=== PATIENT | female | born 2005 | race Hispanic/Latino ===

== ENCOUNTER 2025-03-26 05:45 | Emergency (ER) | payer SELFPAY ==
[~2025-03-26] VITALS: Ht 167.6 cm; Wt 73.3 kg
[2025-03-26 05:51] VITALS: BP 134/77; TEMP 97; O2SAT 97
[2025-03-26] MEDS ORDERED: GNP28TAB2 PO (05:53)
== END 2025-03-26 06:10 | disposition left against medical advice (07) ==
LOC: M ED 05:45
DX: Z53.21 Procedure and treatment not carried out due to patient leaving prior to being seen by health care provider (principal)

== ENCOUNTER 2025-03-26 06:11 | Outpatient (CLI) | payer SELFPAY ==
[~2025-03-26] VITALS: Ht 167.6 cm; Wt 73.2 kg
[~2025-03-26 06:11] MED LIST: GNP28TAB2 PO
[2025-03-26 06:34] VITALS: BP 114/69
[2025-03-26 06:52] LABS: KETONE, URINE AUTO RFX 1+ mg/dL (NEGATIVE); LEUKOCYTE ESTERASE UR AUTO RFX NEGATIVE (NEGATIVE); MUCUS, URINE RFX SMALL (NEGATIVE); NITRITE, URINE AUTO RFX NEGATIVE (NEGATIVE); RBC, URINE AUTO RFX 6 /HPF (0-3); SQUAM EPITHELIAL CELL UR AURFX 5 /HPF (0-6); WBC, URINE AUTO RFX 2 /HPF (0-3)
[2025-03-26] MEDS: LR 1,000 ML IV ONE (07:04)
[2025-03-26 07:15] LABS: BASO % 0.2 % (0.0-1.0); EOS # 0.1 10^3/uL (0.0-0.5); EOS % 0.9 % (0.0-3.0); HEMATOCRIT 38.6 % (36.0-47.0); LYMPH # 1.5 10^3/uL (1.5-5.0); LYMPH % 17.1 % (24.0-44.0); MEAN CORPUSCULAR HEMOGLOBIN 29.1 pg (27.0-33.0); MEAN CORPUSCULAR HGB CONC 33.7 g/dl (32.0-36.5); MEAN CORPUSCULAR VOLUME 86.4 fl (80.0-96.0); MONO # 0.8 10^3/uL (0.0-0.8); MONO % 9.2 % (2.0-8.0); NEUTROPHILS # 6.4 10^3/uL (1.5-8.5); NEUTROPHILS % 71.6 % (36.0-66.0); PLATELET COUNT, AUTOMATED 259 10^3/uL (150-450); RED BLOOD COUNT 4.47 10^6/uL (4.00-5.40)
[2025-03-26 07:44] VITALS: BP 123/64
[2025-03-26 07:47] LABS: ALBUMIN 3.1 G/DL (3.2-5.2); ALKALINE PHOSPHATASE 82 U/L (35-104); ALT/SGPT 17 U/L (7.0-40); AST/SGOT 27 U/L (<34); BILIRUBIN,TOTAL 0.3 MG/DL (0.3-1.2); BLOOD UREA NITROGEN 8 MG/DL (9-23); CALCIUM LEVEL 10.7 MG/DL (8.5-10.1); CARBON DIOXIDE LEVEL 21 MMOL/L (20-31); CHLORIDE LEVEL 105 MMOL/L (98-107); CREATININE FOR GFR 0.51 MG/DL (0.55-1.30); GLOMERULAR FILTRATION RATE > 90.0 (>60); GLUCOSE, FASTING 79 MG/DL (60-100); POTASSIUM SERUM 3.8 MMOL/L (3.5-5.1); SODIUM LEVEL 136 MMOL/L (136-145); TOTAL PROTEIN 6.5 G/DL (5.7-8.2)
[2025-03-26] MEDS: LOPERAMIDE 2 MG CAPLET PO ONE (08:59)
[2025-03-26 10:18] VITALS: BP 101/54
== END 2025-03-26 10:35 | disposition home or self-care (01) ==
LOC: M LDO 06:11
PROVIDERS: ATTEND Obstetrics & Gynecology
DX: O26.892 Other specified pregnancy related conditions, second trimester (principal); R10.9 Unspecified abdominal pain; R19.7 Diarrhea, unspecified; Z3A.22 22 weeks gestation of pregnancy
CPT/HCPCS: 80053; 81001; 85025; 87507; G0463

== ENCOUNTER 2025-07-16 15:17 | Emergency (ER) | payer OTHER, SELFPAY ==
[~2025-07-16] VITALS: Ht 167.6 cm; Wt 78.8 kg
[2025-07-16] MEDS ORDERED: ACET-683 PO (15:25)
[2025-07-16 16:15] LABS: KETONE, URINE AUTO RFX NEGATIVE (NEGATIVE); LEUKOCYTE ESTERASE UR AUTO RFX NEGATIVE (NEGATIVE); MUCUS, URINE RFX SMALL (NEGATIVE); NITRITE, URINE AUTO RFX NEGATIVE (NEGATIVE); RBC, URINE AUTO RFX 3 /HPF (0-3); SQUAM EPITHELIAL CELL UR AURFX 0 /HPF (0-6); WBC, URINE AUTO RFX 1 /HPF (0-3)
[2025-07-16] MEDS: ACETAMINOPHEN 500 MG TAB PO ONE (16:18)
[2025-07-16 16:34] LABS: BASO # 0.1 10^3/uL (0.0-0.2); BASO % 0.4 % (0.0-1.0); EOS # 0.1 10^3/uL (0.0-0.5); EOS % 0.7 % (0.0-3.0); LYMPH # 1.3 10^3/uL (1.5-5.0); LYMPH % 8.9 % (24.0-44.0); MONO # 0.8 10^3/uL (0.0-0.8); MONO % 5.4 % (2.0-8.0); NEUTROPHILS # 11.8 10^3/uL (1.5-8.5); NEUTROPHILS % 84.2 % (36.0-66.0); PLATELET COUNT, AUTOMATED 302 10^3/uL (150-450)
[2025-07-16 16:44] LABS: ERYTHROCYTE SEDIMENTATION RATE 68 mm/hr (0-20)
[2025-07-16] MEDS: NS (Normal Saline) 0.9% 1,000 ML IV ONE (16:47)
[2025-07-16 16:56] LABS: ALT/SGPT 40 U/L (7.0-40); AST/SGOT 23 U/L (<34); C REACTIVE PROTEIN QUANTITATIV 6.32 MG/DL (<1.0); CALCIUM LEVEL 10.8 MG/DL (8.5-10.1); CARBON DIOXIDE LEVEL 26 MMOL/L (20-31); CHLORIDE LEVEL 105 MMOL/L (98-107); CREATININE FOR GFR 0.89 MG/DL (0.55-1.30); GLOMERULAR FILTRATION RATE > 90.0 (>60); POTASSIUM SERUM 4.2 MMOL/L (3.5-5.1); SODIUM LEVEL 141 MMOL/L (136-145)
[2025-07-16] MEDS: IBUPROFEN 600 MG TAB PO ONE (18:02)
[2025-07-16] MEDS ORDERED: ISOVUE-370 76% 100 ML VIAL As Ordered ONE (18:05)
[2025-07-16] MEDS ORDERED: LIDOCAINE 1% SDV 5 ML VIAL DILUENT ONE (20:45)
[2025-07-16] MEDS ORDERED: METR-265 PO (20:49)
[2025-07-16] MEDS ORDERED: DOXY-441 PO (20:49)
[2025-07-16] MEDS: MINI IV ONE (20:59)
[2025-07-16] MEDS: DEXTROSE 5% IV ONE (20:59)
[2025-07-16] MEDS: DOXYCYCLINE HYCLATE 100 MG TABLET PO ONE (20:59)
[2025-07-16] MEDS: CEFTRIAXONE SOD IV ONE (20:59)
[2025-07-16] MEDS: ADV IV ONE (20:59)
[2025-07-16 21:27] VITALS: BP 107/61; TEMP 96.7; O2SAT 98
== END 2025-07-16 21:29 | disposition home or self-care (01) ==
LOC: M ED 15:17
DX: R50.9 Fever, unspecified (principal); R16.2 Hepatomegaly with splenomegaly, not elsewhere classified; N20.0 Calculus of kidney; Z79.899 Other long term (current) drug therapy
CPT/HCPCS: 36415; 74177; 76856; 80053; 81001; 83605; 84145; 85025; 85652; 86140; 87486; 87581; 87633; 87798; 93005; 93976; 96361; 96365; 99284; J0696; Q9967

== ENCOUNTER 2025-07-26 22:07 | Inpatient (IN) | payer OTHER ==
[~2025-07-26] VITALS: Ht 167.6 cm; Wt 77.2 kg
[~2025-07-26 22:07] MED LIST changes: +ACET-683 PO; +DOXY-441 PO; +METR-265 PO
[2025-07-27] MEDS: IBUPROFEN 600 MG TAB PO ONE (01:52)
[2025-07-27 03:14] LABS: KETONE, URINE AUTO RFX 1+ mg/dL (NEGATIVE); LEUKOCYTE ESTERASE UR AUTO RFX 1+ (NEGATIVE); NITRITE, URINE AUTO RFX NEGATIVE (NEGATIVE); RBC, URINE AUTO RFX 22 /HPF (0-3); SQUAM EPITHELIAL CELL UR AURFX 0 /HPF (0-6); WBC, URINE AUTO RFX 6 /HPF (0-3)
[2025-07-27 03:17] LABS: BASO # 0.1 10^3/uL (0.0-0.2); BASO % 0.5 % (0.0-1.0); EOS # 0.3 10^3/uL (0.0-0.5); EOS % 2.1 % (0.0-3.0); LYMPH # 1.6 10^3/uL (1.5-5.0); LYMPH % 11.7 % (24.0-44.0); MONO # 0.8 10^3/uL (0.0-0.8); MONO % 5.9 % (2.0-8.0); NEUTROPHILS # 10.6 10^3/uL (1.5-8.5); NEUTROPHILS % 79.5 % (36.0-66.0); PLATELET COUNT, AUTOMATED 430 10^3/uL (150-450)
[2025-07-27] MEDS ORDERED: ISOVUE-370 76% 100 ML VIAL As Ordered ONE (03:34)
[2025-07-27 03:46] LABS: ALT/SGPT 36 U/L (7.0-40); AST/SGOT 24 U/L (<34); CALCIUM LEVEL 10.4 MG/DL (8.5-10.1); CARBON DIOXIDE LEVEL 24 MMOL/L (20-31); CHLORIDE LEVEL 103 MMOL/L (98-107); CREATININE FOR GFR 0.88 MG/DL (0.55-1.30); GLOMERULAR FILTRATION RATE > 90.0 (>60); POTASSIUM SERUM 4.1 MMOL/L (3.5-5.1); SODIUM LEVEL 137 MMOL/L (136-145)
[2025-07-27] MEDS: [UNRECOGNIZED DRUG - OTHER] IV ONE (04:04)
[2025-07-27] MEDS: NS 0.9% IV ONE (04:04)
[2025-07-27] MEDS: ACETAMINOPHEN *IV* 1,000 MG in IV 1 EA IV ONE (04:05)
[2025-07-27 06:30] LABS: HCG, SERUM QUANTITATIVE < 2.6 MIU/ML (<4.2)
[2025-07-27 07:51] LABS: C REACTIVE PROTEIN QUANTITATIV 3.17 MG/DL (<1.0)
[2025-07-27 08:02] LABS: ERYTHROCYTE SEDIMENTATION RATE 52 mm/hr (0-20)
[2025-07-27] MEDS ORDERED: DOXY-440 PO (11:14)
[2025-07-27] MEDS ORDERED: METR-265 PO (11:15)
[2025-07-27] MEDS ORDERED: HOME MED LIST COMPLETE! XX SCH (11:20)
[2025-07-27] MEDS: D5W/0.45% SODIUM CHLORIDE 1,000 ML IV ONE (11:25)
[2025-07-27 12:00] VITALS: BP 104/63; TEMP 98.8; O2SAT 99
[2025-07-27 13:45] VITALS: TEMP 98.7
[2025-07-27] MEDS ORDERED: IBUPROFEN 800 MG TAB PO PRN (13:55)
[2025-07-27 16:00] VITALS: BP 111/63; TEMP 99.7; O2SAT 98
[2025-07-27 16:40] VITALS: TEMP 100
[2025-07-27] MEDS: ACETAMINOPHEN 500 MG TAB PO PRN (16:47)
[2025-07-27 18:00] VITALS: TEMP 98.9
[2025-07-27] MEDS: FLUCONAZOLE 100 MG TAB PO ONE (18:23)
[2025-07-27 20:00] VITALS: BP 108/61; TEMP 98.4; O2SAT 98
[2025-07-28] VITALS: BP 102/55; TEMP 97.2; O2SAT 98
[2025-07-28 04:00] VITALS: BP 115/59; TEMP 98.6; O2SAT 97
[2025-07-28] MEDS: CLOTRIMAZOLE 1% TOPICAL CREAM 30 GM TOP SCH (06:04)
[2025-07-28 08:00] VITALS: BP 101/56; TEMP 98.8; O2SAT 98
[2025-07-28] MEDS: PIPERACILLIN/TAZOBACTAM SOD 3.375 GM in DEXTROSE 5% (D5W) ADV/MINI-BAG 50 ML IV SCH (08:25)
[2025-07-28] MEDS: FLUZONE VACCINE TRIVALENT PF(25-26) 0.5ML SYRINGE IM.IMMUN ONE (10:16)
[2025-07-28 12:00] VITALS: BP 109/65; TEMP 98.5; O2SAT 99
[2025-07-28 16:00] VITALS: BP 110/68; TEMP 98.1; O2SAT 98
[2025-07-28] MEDS: DOCUSATE SODIUM 100 MG CAPSULE PO PRN (17:09)
[2025-07-28 20:00] VITALS: BP 103/57; TEMP 97.4; O2SAT 98
[2025-07-29] VITALS: BP 107/67; TEMP 97.6; O2SAT 97
[2025-07-29 04:00] VITALS: BP 104/55; TEMP 97.7; O2SAT 97
[2025-07-29 09:08] VITALS: BP 108/60; TEMP 97.6; O2SAT 97
[2025-07-29 11:09] LABS: PLATELET COUNT, AUTOMATED 328 10^3/uL (150-450)
[2025-07-29 11:59] VITALS: BP 114/56; TEMP 97.6; O2SAT 98
[2025-07-29] MEDS ORDERED: METR-265 PO (12:58)
== END 2025-07-29 15:21 | disposition home or self-care (01) | DRG 776 ==
LOC: M ED 22:07 → M ED INP 07-27 11:06 → M PED 07-27 12:34
PROVIDERS: ADMIT Advanced Practice Midwife; ATTEND Advanced Practice Midwife
DX: O86.12 Endometritis following delivery (principal)